=== PATIENT | male | born 1955 | race Caucasian/White ===

== ENCOUNTER 2022-03-20 09:52 | Inpatient (IN) | payer OTHER ==
[2022-03-20 10:01] VITALS: BMI 25.0
[2022-03-20] MEDS ORDERED: FAMOTIDINE 20 MG/50 ML IVPB 20 MG/50 ML MG IVPB ONE ×2 (11:11→11:31)
[2022-03-20] MEDS ORDERED: ONDANSETRON 4 MG/2 ML VIAL IVPUSH ONE (11:11)
[2022-03-20] MEDS ORDERED: MAG HYDROX/AL HYDROX/SIMETH 30 ML UNIT-DOSE CUP PO ONE (11:11)
[2022-03-20] MEDS ORDERED: SODIUM CHLORIDE 0.9% 500 ML INFUS.BAG IV ONE (11:22)
[2022-03-20] MEDS ORDERED: MAG HYDROX/AL HYDROX/SIMETH 30 ML UNIT-DOSE CUP ONE (11:31)
[2022-03-20] MEDS ORDERED: ONDANSETRON 4 MG/2 ML VIAL ONE (11:31)
[2022-03-20 12:08] LABS: BASO % 0.4 % (0-2.0); EOS % 0.3 % (0-4.5); HEMATOCRIT 46.4 % (35.4-49); HEMOGLOBIN 15.1 GM/dL (11.7-16.9); LYMPH % 12.4 % (8-40); MCH 29.4 pg (25.7-33.7); MCHC 32.5 g/dl (32.0-35.9); MEAN CELL VOLUME 90.3 fl (80-96); MEAN PLT VOLUME 9.6 fl (7.5-11.1); NEUT % 76.9 % (42.8-82.8); PLATELET COUNT 156 10^3/uL (134-434); RBC 5.15 M/mm3 (4.00-5.60); RDW 17.7 % (11.9-15.9); WHITE BLOOD COUNT 8.1 K/mm3 (4.0-10.0)
[2022-03-20 12:24] LABS: ACTIVATED PTT 32.1 SECONDS (25.2-36.5); INR 1.09 (0.83-1.09); PROTHROMBIN TIME (PATIENT) 12.6 SEC (9.7-13.0)
[2022-03-20 12:30] LABS: CALCIUM 9.2 mg/dL (8.5-10.1)
[2022-03-20 12:31] LABS: ALBUMIN 3.7 g/dl (3.4-5.0); BLOOD UREA NITROGEN 30.7 mg/dL (7-18)
[2022-03-20 12:34] LABS: CREATININE 1.5 mg/dL (0.55-1.3)
[2022-03-20 12:35] LABS: BILIRUBIN,TOTAL 1.5 mg/dL (0.2-1); TOT PROT 7.1 g/dl (6.4-8.2)
[2022-03-20] MEDS ORDERED: ACETAMINOPHEN 325 MG TABLET (FP) PO PRN (18:05)
[2022-03-20] MEDS ORDERED: ONDANSETRON 4 MG/2 ML VIAL IVPUSH PRN (18:14)
[2022-03-20] MEDS ORDERED: SODIUM CHLORIDE 1,000 ML IV SCH (18:15)
[2022-03-20] MEDS ORDERED: MELATONIN 5 MG TABLETS PO PRN (18:19)
[2022-03-20] MEDS ORDERED: PIPERACILLIN/TAZOB 3.375 GM 3.375 GM in DEXTROSE 5%-WATER - 50 ML IVPB SCH (18:30)
[2022-03-20] MEDS ORDERED: PIPERACILLIN/TAZOB 3.375 GM 3.375 GM/50 ML BAG IVPB ONE (19:27)
[2022-03-20] MEDS: PIPERACILLIN/TAZOB 3.375 GM 3.375 GM in DEXTROSE 5%-WATER - 50 ML IVPB SCH (19:34)
[2022-03-20] MEDS ORDERED: CARVEDILOL 25 MG TABLET (FP) ONE (21:26)
[2022-03-20] MEDS ORDERED: PANTOPRAZOLE SODIUM 40 MG VIAL ONE (21:27)
[2022-03-20] MEDS: CARVEDILOL 25 MG TABLET (FP) PO SCH (21:36)
[2022-03-20] MEDS: INSULIN SLIDING SCALE (NOVOLOG) 1 VIAL SQ SCH (21:36)
[2022-03-20] MEDS: PANTOPRAZOLE SODIUM 40 MG VIAL IVPUSH SCH (21:36)
[2022-03-21] MEDS ORDERED: PIPERACILLIN/TAZOB 3.375 GM 3.375 GM/50 ML BAG IVPB ONE (02:15)
[2022-03-21] MEDS: PIPERACILLIN/TAZOB 3.375 GM 3.375 GM in DEXTROSE 5%-WATER - 50 ML IVPB SCH (03:21)
[2022-03-21] MEDS: INSULIN SLIDING SCALE (NOVOLOG) 1 VIAL SQ SCH ×4 (07:42→21:20)
[2022-03-21] MEDS ORDERED: LISINOPRIL 10 MG TABLET ONE (08:07)
[2022-03-21] MEDS ORDERED: CEFTRIAXONE 1 GM/50 ML BAG ONE (08:07)
[2022-03-21] MEDS ORDERED: CARVEDILOL 25 MG TABLET (FP) ONE ×2 (08:07→21:53)
[2022-03-21] MEDS ORDERED: DOCUSATE SODIUM 100 MG CAPSULE (FP) PO ONE (08:07)
[2022-03-21] MEDS ORDERED: SPIRONOLACTONE 25 MG TABLET ONE (08:07)
[2022-03-21] MEDS ORDERED: PANTOPRAZOLE SODIUM 40 MG VIAL ONE (08:08)
[2022-03-21 08:26] LABS: BASO % 0.5 % (0-2.0); EOS % 0.9 % (0-4.5); HEMOGLOBIN 14.5 GM/dL (11.7-16.9); LYMPH % 19.3 % (8-40); MCH 29.7 pg (25.7-33.7); MCHC 32.9 g/dl (32.0-35.9); MEAN CELL VOLUME 90.2 fl (80-96); MEAN PLT VOLUME 9.5 fl (7.5-11.1); MONO % 14.4 % (3.8-10.2); NEUT % 64.9 % (42.8-82.8); PLATELET COUNT 131 10^3/uL (134-434); RBC 4.87 M/mm3 (4.00-5.60); RDW 17.8 % (11.9-15.9); WHITE BLOOD COUNT 4.8 K/mm3 (4.0-10.0)
[2022-03-21 08:29] LABS: ALBUMIN 3.4 g/dl (3.4-5.0); BLOOD UREA NITROGEN 27.4 mg/dL (7-18)
[2022-03-21 08:32] LABS: CREATININE 1.5 mg/dL (0.55-1.3)
[2022-03-21 08:33] LABS: TOT PROT 6.4 g/dl (6.4-8.2)
[2022-03-21 08:35] LABS: INR 1.21 (0.83-1.09)
[2022-03-21] MEDS: LISINOPRIL 10 MG TABLET PO SCH (09:06)
[2022-03-21] MEDS: PANTOPRAZOLE SODIUM 40 MG VIAL IVPUSH SCH (09:06)
[2022-03-21] MEDS: CEFTRIAXONE 1 GM in DEXTROSE 5%-WATER - 50 ML IVPB SCH (09:06)
[2022-03-21] MEDS: CARVEDILOL 25 MG TABLET (FP) PO SCH ×2 (09:06→21:59)
[2022-03-21] MEDS: SPIRONOLACTONE 25 MG TABLET PO SCH (09:06)
[2022-03-21] MEDS: DOCUSATE SODIUM 100 MG CAPSULE (FP) PO SCH (09:06)
[2022-03-21 11:43] LABS: BILIRUBIN,DIRECT 0.6 mg/dL (0.0-0.2)
[2022-03-21] MEDS ORDERED: FUROSEMIDE 40 MG/4 ML INJECTABLE VIAL ONE (15:52)
[2022-03-21 15:57] LABS: N-TERMINAL BNP 7459.4 pg/ml (5-125)
[2022-03-21] MEDS: FUROSEMIDE 40 MG/4 ML INJECTABLE VIAL IVPUSH SCH (16:40)
[2022-03-22] MEDS: INSULIN SLIDING SCALE (NOVOLOG) 1 VIAL SQ SCH ×4 (06:24→21:47)
[2022-03-22 06:37] LABS: BASO % 0.6 % (0-2.0); EOS % 1.6 % (0-4.5); HEMATOCRIT 44.3 % (35.4-49); HEMOGLOBIN 14.8 GM/dL (11.7-16.9); LYMPH % 20.8 % (8-40); MCH 29.9 pg (25.7-33.7); MCHC 33.3 g/dl (32.0-35.9); MEAN CELL VOLUME 89.7 fl (80-96); MEAN PLT VOLUME 8.8 fl (7.5-11.1); PLATELET COUNT 133 10^3/uL (134-434); RBC 4.94 M/mm3 (4.00-5.60); WHITE BLOOD COUNT 5.2 K/mm3 (4.0-10.0)
[2022-03-22 06:59] LABS: ALBUMIN 3.2 g/dl (3.4-5.0)
[2022-03-22 07:02] LABS: CREATININE 1.6 mg/dL (0.55-1.3)
[2022-03-22 07:04] LABS: BILIRUBIN,TOTAL 1.8 mg/dL (0.2-1); TOT PROT 6.4 g/dl (6.4-8.2)
[2022-03-22] MEDS ORDERED: HEPARIN NA (PORCINE) 5,000 UNITS/ML 1ML VIAL IVPUSH PRN ×2 (07:53)
[2022-03-22] MEDS ORDERED: ASPIRIN 325 MG TABLET PO ONE (08:45)
[2022-03-22] MEDS ORDERED: ALBUTEROL SO4 2.5/IPRATROPIUM 0.5 INH SOL 3 ML VIAL.NEB. NEB ONE (08:49)
[2022-03-22] MEDS ORDERED: HEPARIN NA (PORCINE) 5,000 UNITS/ML 1ML VIAL ONE (09:05)
[2022-03-22] MEDS ORDERED: DOCUSATE SODIUM 100 MG CAPSULE (FP) PO ONE (09:14)
[2022-03-22] MEDS ORDERED: SPIRONOLACTONE 25 MG TABLET ONE (09:14)
[2022-03-22] MEDS ORDERED: ASPIRIN 325 MG TABLET ONE (09:14)
[2022-03-22] MEDS ORDERED: LISINOPRIL 10 MG TABLET ONE (09:14)
[2022-03-22] MEDS ORDERED: CARVEDILOL 25 MG TABLET (FP) ONE (09:14)
[2022-03-22] MEDS ORDERED: FUROSEMIDE 40 MG/4 ML INJECTABLE VIAL ONE (09:15)
[2022-03-22] MEDS ORDERED: CEFTRIAXONE 1 GM/50 ML BAG ONE (09:15)
[2022-03-22] MEDS: HEPARIN SOD,PORK IN 0.45% NACL 25,000 UNITS/500 ML INFUS.BAG IVPB SCH (09:21)
[2022-03-22] MEDS: CEFTRIAXONE 1 GM in DEXTROSE 5%-WATER - 50 ML IVPB SCH (09:22)
[2022-03-22] MEDS: DOCUSATE SODIUM 100 MG CAPSULE (FP) PO SCH (09:22)
[2022-03-22] MEDS: CARVEDILOL 25 MG TABLET (FP) PO SCH ×2 (09:22→21:47)
[2022-03-22] MEDS: SPIRONOLACTONE 25 MG TABLET PO SCH (09:22)
[2022-03-22] MEDS: FUROSEMIDE 40 MG/4 ML INJECTABLE VIAL IVPUSH SCH (09:22)
[2022-03-22] MEDS: LISINOPRIL 10 MG TABLET PO SCH (09:22)
[2022-03-22] MEDS ORDERED: FLU VACC QS2021-22(6MOS UP)/PF 60 MCG/0.5 ML SYRINGE IM ONE (16:00)
[2022-03-23 06:43] LABS: BLOOD UREA NITROGEN 23.5 mg/dL (7-18); CALCIUM 8.5 mg/dL (8.5-10.1)
[2022-03-23 06:46] LABS: CREATININE 1.3 mg/dL (0.55-1.3)
[2022-03-23] MEDS: INSULIN SLIDING SCALE (NOVOLOG) 1 VIAL SQ SCH ×4 (06:49→21:26)
[2022-03-23] MEDS: HEPARIN SOD,PORK IN 0.45% NACL 25,000 UNITS/500 ML INFUS.BAG IVPB SCH (08:00)
[2022-03-23] MEDS ORDERED: cefTRIAXone SODIUM 1 GM VIAL ONE (08:43)
[2022-03-23] MEDS ORDERED: DEXTROSE 5%-WATER - 50 ML IVPB ONE (08:43)
[2022-03-23] MEDS: CARVEDILOL 25 MG TABLET (FP) PO SCH ×2 (09:13→21:22)
[2022-03-23] MEDS: CEFTRIAXONE 1 GM in DEXTROSE 5%-WATER - 50 ML IVPB SCH (09:13)
[2022-03-23] MEDS: DOCUSATE SODIUM 100 MG CAPSULE (FP) PO SCH (09:13)
[2022-03-23] MEDS: FUROSEMIDE 40 MG/4 ML INJECTABLE VIAL IVPUSH SCH (09:13)
[2022-03-23] MEDS: LISINOPRIL 10 MG TABLET PO SCH (09:13)
[2022-03-23] MEDS: SPIRONOLACTONE 25 MG TABLET PO SCH (09:13)
[2022-03-23] MEDS: ASPIRIN 81 MG CHEWABLE TABLETS PO SCH (09:16)
[2022-03-24] MEDS: INSULIN SLIDING SCALE (NOVOLOG) 1 VIAL SQ SCH ×4 (06:16→23:27)
[2022-03-24 07:45] LABS: BASO % 0.6 % (0-2.0); EOS % 4.5 % (0-4.5); HEMATOCRIT 44.4 % (35.4-49); HEMOGLOBIN 14.7 GM/dL (11.7-16.9); LYMPH % 30.9 % (8-40); MCH 29.7 pg (25.7-33.7); MCHC 33.1 g/dl (32.0-35.9); MEAN CELL VOLUME 89.7 fl (80-96); MEAN PLT VOLUME 9.4 fl (7.5-11.1); MONO % 20.6 % (3.8-10.2); NEUT % 43.4 % (42.8-82.8); PLATELET COUNT 119 10^3/uL (134-434); RBC 4.95 M/mm3 (4.00-5.60); RDW 17.3 % (11.9-15.9); WHITE BLOOD COUNT 3.5 K/mm3 (4.0-10.0)
[2022-03-24 07:49] LABS: HEMATOCRIT 44.2 % (35.4-49); HEMOGLOBIN 14.8 GM/dL (11.7-16.9); MCH 29.9 pg (25.7-33.7); MCHC 33.4 g/dl (32.0-35.9); MEAN CELL VOLUME 89.4 fl (80-96); PLATELET COUNT 121 10^3/uL (134-434); RBC 4.95 M/mm3 (4.00-5.60); RDW 17.8 % (11.9-15.9); WHITE BLOOD COUNT 3.6 K/mm3 (4.0-10.0)
[2022-03-24 08:11] LABS: ALBUMIN 2.9 g/dl (3.4-5.0); BLOOD UREA NITROGEN 18.9 mg/dL (7-18); CALCIUM 8.5 mg/dL (8.5-10.1); MAGNESIUM 1.9 mg/dL (1.8-2.4)
[2022-03-24 08:14] LABS: CREATININE 1.1 mg/dL (0.55-1.3)
[2022-03-24 08:15] LABS: BILIRUBIN,TOTAL 1.1 mg/dL (0.2-1); TOT PROT 5.9 g/dl (6.4-8.2)
[2022-03-24] MEDS ORDERED: cefTRIAXone SODIUM 1 GM VIAL ONE (08:45)
[2022-03-24] MEDS ORDERED: DEXTROSE 5%-WATER - 50 ML IVPB ONE (08:45)
[2022-03-24 09:00] LABS: ANISOCYTOSIS 1+; MACROCYTOSIS 0
[2022-03-24] MEDS: HEPARIN SOD,PORK IN 0.45% NACL 25,000 UNITS/500 ML INFUS.BAG IVPB SCH (09:00)
[2022-03-24] MEDS: CARVEDILOL 25 MG TABLET (FP) PO SCH ×2 (10:25→22:38)
[2022-03-24] MEDS: SPIRONOLACTONE 25 MG TABLET PO SCH (10:25)
[2022-03-24] MEDS: ASPIRIN 81 MG CHEWABLE TABLETS PO SCH (10:25)
[2022-03-24] MEDS: FUROSEMIDE 40 MG/4 ML INJECTABLE VIAL IVPUSH SCH (10:25)
[2022-03-24] MEDS: DOCUSATE SODIUM 100 MG CAPSULE (FP) PO SCH (10:27)
[2022-03-24] MEDS: CEFTRIAXONE 1 GM in DEXTROSE 5%-WATER - 50 ML IVPB SCH (10:27)
[2022-03-24] MEDS: SACUBITRIL/VALSARTAN 24 MG-26 MG TABLET PO SCH (22:38)
[2022-03-25 07:08] LABS: HEMATOCRIT 46.1 % (35.4-49); HEMOGLOBIN 15.2 GM/dL (11.7-16.9); MCH 29.2 pg (25.7-33.7); MEAN CELL VOLUME 88.5 fl (80-96); MEAN PLT VOLUME 9.7 fl (7.5-11.1); PLATELET COUNT 115 10^3/uL (134-434); RBC 5.21 M/mm3 (4.00-5.60); WHITE BLOOD COUNT 4.3 K/mm3 (4.0-10.0)
[2022-03-25] MEDS: INSULIN SLIDING SCALE (NOVOLOG) 1 VIAL SQ SCH ×4 (08:18→21:18)
[2022-03-25] MEDS ORDERED: DEXTROSE 5%-WATER - 50 ML IVPB ONE (08:21)
[2022-03-25] MEDS ORDERED: cefTRIAXone SODIUM 1 GM VIAL ONE (08:21)
[2022-03-25] MEDS: HEPARIN SOD,PORK IN 0.45% NACL 25,000 UNITS/500 ML INFUS.BAG IVPB SCH (09:27)
[2022-03-25] MEDS: CARVEDILOL 25 MG TABLET (FP) PO SCH ×2 (09:42→21:15)
[2022-03-25] MEDS: SPIRONOLACTONE 25 MG TABLET PO SCH (09:42)
[2022-03-25] MEDS: CEFTRIAXONE 1 GM in DEXTROSE 5%-WATER - 50 ML IVPB SCH (09:42)
[2022-03-25] MEDS: FUROSEMIDE 40 MG/4 ML INJECTABLE VIAL IVPUSH SCH (09:42)
[2022-03-25] MEDS: DOCUSATE SODIUM 100 MG CAPSULE (FP) PO SCH (09:42)
[2022-03-25] MEDS: SACUBITRIL/VALSARTAN 24 MG-26 MG TABLET PO SCH ×2 (09:43→21:15)
[2022-03-25] MEDS: ASPIRIN 81 MG CHEWABLE TABLETS PO SCH (09:43)
[2022-03-26] MEDS: INSULIN SLIDING SCALE (NOVOLOG) 1 VIAL SQ SCH ×2 (06:16→12:41)
[2022-03-26 08:22] LABS: BASO % 0.6 % (0-2.0); EOS % 4.9 % (0-4.5); HEMATOCRIT 47.3 % (35.4-49); HEMOGLOBIN 15.5 GM/dL (11.7-16.9); MCHC 32.8 g/dl (32.0-35.9); MEAN CELL VOLUME 88.5 fl (80-96); MEAN PLT VOLUME 9.3 fl (7.5-11.1); MONO % 19.7 % (3.8-10.2); NEUT % 36.8 % (42.8-82.8); PLATELET COUNT 127 10^3/uL (134-434); RBC 5.35 M/mm3 (4.00-5.60); RDW 17.9 % (11.9-15.9); WHITE BLOOD COUNT 4.6 K/mm3 (4.0-10.0)
[2022-03-26] MEDS ORDERED: cefTRIAXone SODIUM 1 GM VIAL ONE (08:44)
[2022-03-26 08:55] LABS: BLOOD UREA NITROGEN 17.4 mg/dL (7-18); CALCIUM 8.6 mg/dL (8.5-10.1)
[2022-03-26 08:56] LABS: MAGNESIUM 1.9 mg/dL (1.8-2.4)
[2022-03-26] MEDS: HEPARIN SOD,PORK IN 0.45% NACL 25,000 UNITS/500 ML INFUS.BAG IVPB SCH (08:58)
[2022-03-26] MEDS: FUROSEMIDE 40 MG/4 ML INJECTABLE VIAL IVPUSH SCH (10:14)
[2022-03-26] MEDS: CEFTRIAXONE 1 GM in DEXTROSE 5%-WATER - 50 ML IVPB SCH (10:14)
[2022-03-26] MEDS: SACUBITRIL/VALSARTAN 24 MG-26 MG TABLET PO SCH (10:14)
[2022-03-26] MEDS: SPIRONOLACTONE 25 MG TABLET PO SCH (10:15)
[2022-03-26] MEDS: DOCUSATE SODIUM 100 MG CAPSULE (FP) PO SCH (10:15)
[2022-03-26] MEDS: CARVEDILOL 25 MG TABLET (FP) PO SCH (10:15)
[2022-03-26] MEDS: ASPIRIN 81 MG CHEWABLE TABLETS PO SCH (10:15)
[2022-03-26 15:27] VITALS: BP 100/62; PULSE 82; TEMP 97.7
[2022-03-27] MEDS ORDERED: FUROSEMIDE 40 MG TABLET (FP) PO SCH (10:00)
== END 2022-03-26 18:11 | disposition short-term general hospital (02) | DRG 444 ==
LOC: JER 09:52 → JERBED 15:34 → J4W 03-22 14:25
PROVIDERS: ADMIT Internal Medicine; ATTEND Internal Medicine
DX: K81.0 Acute cholecystitis (principal); I50.23 Acute on chronic systolic (congestive) heart failure; I21.4 Non-ST elevation (NSTEMI) myocardial infarction; U07.1 COVID-19; I13.0 Hypertensive heart and chronic kidney disease with heart failure and stage 1 through stage 4 chronic kidney disease, or unspecified chronic kidney disease; N17.9 Acute kidney failure, unspecified; I42.8 Other cardiomyopathies; E11.51 Type 2 diabetes mellitus with diabetic peripheral angiopathy without gangrene; E11.22 Type 2 diabetes mellitus with diabetic chronic kidney disease; K21.9 Gastro-esophageal reflux disease without esophagitis; I08.1 Rheumatic disorders of both mitral and tricuspid valves; R16.0 Hepatomegaly, not elsewhere classified; N18.9 Chronic kidney disease, unspecified
CPT/HCPCS: 36415; 71045-TC-FY; 74176-TC; 76705-TC; 80048; 80053; 82248; 82550; 82553; 82962; 83690; 83735; 83880; 84436; 84443; 84484; 85025; 85027; 85610; 85730; 86704; 86709; 86803; 87340; 87517; 93005; 93010; 93306-TC; 99285-25; C9803-CS; J1644; U0003; U0005